=== PATIENT | male | born 1955 | race Two or more races ===

== ENCOUNTER 2022-10-16 07:42 | Inpatient (IN) | payer OTHER ==
[2022-10-16] MEDS ORDERED: fentaNYL 100 MCG/2 ML SDV ONE (08:33)
[2022-10-16] MEDS ORDERED: Ketorolac 30 MG/ML SDV ONE ×2 (08:33→20:36)
[2022-10-16] MEDS ORDERED: Ketorolac 30 MG/ML SDV IVPUSH ONE (08:40)
[2022-10-16] MEDS ORDERED: fentaNYL 100 MCG/2 ML SDV IVPUSH ONE (08:40)
[2022-10-16] MEDS ORDERED: HYDROmorphone 0.5 MG/0.5 ML Syringe IVPUSH PRN ×2 (08:53→19:29)
[2022-10-16] MEDS ORDERED: Ondansetron 8 MG in Sodium Chloride 0.9% 50 ML IV PRN (08:53)
[2022-10-16 08:55] LABS: BASOPHILS PERCENT AUTO 0.3 % (0.0-1.0); EOSINOPHILS PERCENT AUTO 0.2 % (0.0-6.0); HEMOGLOBIN 15.3 gm/dl (14.0-18.0); IMMATURE GRAN ABSOLUTE AUTO 0.08 K/mm3 (0.00-0.05); IMMATURE GRAN PERCENT AUTO 0.7 % (0.0-0.4); LYMPHOCYTES ABSOLUTE AUTO 0.9 K/mm3 (1.0-4.8); LYMPHOCYTES PERCENT AUTO 7.7 % (24.0-44.0); MEAN CORPUSCULAR HEMOGLOBIN 31.6 pg (28.0-32.0); MEAN PLATELET VOLUME 9.4 fl (9.4-12.4); MONOCYTES ABSOLUTE AUTO 0.5 K/mm3 (0.0-0.8); MONOCYTES PERCENT AUTO 4.5 % (0.0-8.0); NEUTROPHILS ABSOLUTE AUTO 9.8 K/mm3 (1.8-7.7); NEUTROPHILS PERCENT AUTO 86.6 % (41.0-71.0); PLATELET COUNT,PLT 240 K/mm3 (150-400); RED BLOOD CELL COUNT 4.84 M/mm3 (4.52-5.90); WHITE BLOOD CELL COUNT,WBC 11.28 K/mm3 (3.9-11.3)
[2022-10-16] MEDS ORDERED: Sodium Chloride 0.9% 1,000 ML IV SCH (09:00)
[2022-10-16 09:02] LABS: INR 1.07; PROTHROMBIN TIME 11.4 SECONDS (9.7-12.0)
[2022-10-16 09:03] LABS: PTT,PARTIAL THROMBOPLSTIN TIME 29.3 SECONDS (21.7-31.4)
[2022-10-16 09:05] LABS: A/G RATIO 0.7 (1-2); ALBUMIN 3.6 g/dl (3.4-5.0); ANION GAP 13.9 (5-15); BILIRUBIN TOTAL 1.1 mg/dL (0.2-1.0); CALCIUM 9.8 mg/dL (8.5-10.1); EST CRCL DRUG DOSING (CG) 69.77 mL/min; POTASSIUM,K 4.9 mEq/L (3.5-5.1); PROTEIN TOTAL,TP 8.9 g/dl (6.4-8.2)
[2022-10-16 09:14] LABS: APPEARANCE,URINE CLEAR (Clear); BILIRUBIN,URINE NEGATIVE (Negative); COLOR,URINE YELLOW (Yellow); GLUCOSE,URINE TRACE (Negative); KETONES,URINE 1+ (Negative); LEUKOCYTE ESTERASE,URINE NEGATIVE (Negative); NITRITE,URINE NEGATIVE (Negative); OCCULT BLOOD,URINE TRACE-INTACT (Negative); PROTEIN,URINE NEGATIVE (Negative); UROBILINOGEN,URINE 0.2 (0.2-1.0)
[2022-10-16 09:35] LABS: BACTERIA,URINE FEW /hpf (FEW); MUCUS,URINE FEW /hpf (FEW); RBC,URINE 0-5 /hpf (0-5); SQUAMOUS EPITHELIAL CELLS,UR 0-5 /hpf (0-5); WBC,URINE 0-5 /hpf (0-5)
[2022-10-16] MEDS: ceFAZolin 2 GM in Sodium Chloride 0.9% 50 ML IV SCH ×2 (09:45→18:10)
[2022-10-16] MEDS ORDERED: Bupivacaine 0.5%/EPINEPHrine 1:200,000 50 ML MDV ONE (17:59)
[2022-10-16] MEDS ORDERED: Bupivacaine 0.25%/EPINEPHrine 1:200,000 30 ML SDV ONE (17:59)
[2022-10-16] MEDS ORDERED: Succinylcholine 200 MG/10 ML MDV ONE (18:35)
[2022-10-16] MEDS ORDERED: Propofol 200 MG/20 ML SDV ONE (18:35)
[2022-10-16] MEDS ORDERED: fentaNYL 250 MCG/5 ML SDV ONE (18:36)
[2022-10-16] MEDS ORDERED: Midazolam 1 MG/ML 2 ML SDV ONE (18:36)
[2022-10-16] MEDS ORDERED: Lidocaine 1% 6 ML ONE (18:37)
[2022-10-16] MEDS ORDERED: Rocuronium 50 MG/5 ML Vial ONE (18:40)
[2022-10-16] MEDS ORDERED: fentaNYL 100 MCG/2 ML SDV IVPUSH PRN (19:29)
[2022-10-16] MEDS ORDERED: Ondansetron 4 MG/2 ML SDV ONE (19:37)
[2022-10-16] MEDS ORDERED: Dexamethasone 4 MG/ML 5 ML MDV ONE (19:45)
[2022-10-16] MEDS ORDERED: Lactated Ringers 1,000 ML ONE (19:51)
[2022-10-16] MEDS ORDERED: Sugammadex Sodium 200 MG/2 ML VIAL ONE (20:35)
[2022-10-16] MEDS ORDERED: ePHEDrine 50 MG/ML SDV ONE (20:54)
[2022-10-16] MEDS: Lactated Ringers 1,000 ML IV SCH (23:15)
[2022-10-17] MEDS: ceFAZolin 2 GM in Sodium Chloride 0.9% 50 ML IV SCH ×3 (01:37→18:42)
[2022-10-17] MEDS: Ketorolac 30 MG/ML SDV IVPUSH PRN ×3 (02:55→21:10)
[2022-10-17] MEDS: Spironolactone 100 MG Tab PO SCH ×2 (06:42→11:19)
[2022-10-17] MEDS: Furosemide 20 MG Tab PO SCH ×2 (06:42→14:08)
[2022-10-17] MEDS: Lactated Ringers 1,000 ML IV SCH ×2 (10:09→18:41)
[2022-10-17] MEDS: Propranolol 60 MG Cap.ER PO SCH (10:10)
[2022-10-17 10:21] LABS: BASOPHILS PERCENT AUTO 0.1 % (0.0-1.0); HEMATOCRIT 37.8 % (42.0-52.0); IMMATURE GRAN ABSOLUTE AUTO 0.07 K/mm3 (0.00-0.05); IMMATURE GRAN PERCENT AUTO 0.4 % (0.0-0.4); LYMPHOCYTES PERCENT AUTO 5.8 % (24.0-44.0); MEAN CORPUSCULAR HEMOGLOBIN 31.4 pg (28.0-32.0); MEAN CORPUSCULAR HGB CONC 33.6 g/dl (32.0-36.0); MEAN CORPUSCULAR VOLUME 93.6 fl (83.0-99.0); MEAN PLATELET VOLUME 9.4 fl (9.4-12.4); MONOCYTES ABSOLUTE AUTO 1.5 K/mm3 (0.0-0.8); MONOCYTES PERCENT AUTO 8.9 % (0.0-8.0); NEUTROPHILS ABSOLUTE AUTO 14.2 K/mm3 (1.8-7.7); NEUTROPHILS PERCENT AUTO 84.8 % (41.0-71.0); PLATELET COUNT,PLT 169 K/mm3 (150-400); RED BLOOD CELL COUNT 4.04 M/mm3 (4.52-5.90); WHITE BLOOD CELL COUNT,WBC 16.69 K/mm3 (3.9-11.3)
[2022-10-17 10:25] LABS: HEMOGLOBIN 12.7 gm/dl (14.0-18.0)
[2022-10-17 11:51] LABS: ANION GAP 12.1 (5-15); BUN/CREATININE RATIO 29.1 (14-18); CREATININE 1.1 mg/dL (0.7-1.3); EST CRCL DRUG DOSING (CG) 63.43 mL/min; POTASSIUM,K 4.1 mEq/L (3.5-5.1)
[2022-10-18] MEDS: ceFAZolin 2 GM in Sodium Chloride 0.9% 50 ML IV SCH ×3 (02:02→17:06)
[2022-10-18] MEDS: Aluminum Hydroxide/Magnesium Hydroxide/Simethicone Susp 30 ML Cup PO PRN ×2 (03:02→21:42)
[2022-10-18] MEDS: Lactated Ringers 1,000 ML IV SCH ×3 (03:14→20:17)
[2022-10-18 05:38] LABS: BASOPHILS PERCENT AUTO 0.2 % (0.0-1.0); EOSINOPHILS ABSOLUTE AUTO 0.1 K/mm3 (0.0-0.4); EOSINOPHILS PERCENT AUTO 0.8 % (0.0-6.0); HEMATOCRIT 33.6 % (42.0-52.0); HEMOGLOBIN 11.4 gm/dl (14.0-18.0); IMMATURE GRAN ABSOLUTE AUTO 0.06 K/mm3 (0.00-0.05); IMMATURE GRAN PERCENT AUTO 0.5 % (0.0-0.4); LYMPHOCYTES ABSOLUTE AUTO 0.9 K/mm3 (1.0-4.8); LYMPHOCYTES PERCENT AUTO 7.1 % (24.0-44.0); MEAN CORPUSCULAR HEMOGLOBIN 31.8 pg (28.0-32.0); MEAN CORPUSCULAR HGB CONC 33.9 g/dl (32.0-36.0); MEAN CORPUSCULAR VOLUME 93.9 fl (83.0-99.0); MEAN PLATELET VOLUME 9.9 fl (9.4-12.4); MONOCYTES ABSOLUTE AUTO 1.4 K/mm3 (0.0-0.8); MONOCYTES PERCENT AUTO 10.4 % (0.0-8.0); NEUTROPHILS ABSOLUTE AUTO 10.8 K/mm3 (1.8-7.7); PLATELET COUNT,PLT 155 K/mm3 (150-400); RED BLOOD CELL COUNT 3.58 M/mm3 (4.52-5.90); WHITE BLOOD CELL COUNT,WBC 13.32 K/mm3 (3.9-11.3)
[2022-10-18 05:51] LABS: ANION GAP 10.1 (5-15); BUN/CREATININE RATIO 32.7 (14-18); CALCIUM 8.6 mg/dL (8.5-10.1); CREATININE 1.1 mg/dL (0.7-1.3); EST CRCL DRUG DOSING (CG) 63.43 mL/min; POTASSIUM,K 4.1 mEq/L (3.5-5.1)
[2022-10-18] MEDS: Furosemide 20 MG Tab PO SCH ×2 (07:39→14:32)
[2022-10-18] MEDS: Propranolol 60 MG Cap.ER PO SCH (09:33)
[2022-10-18] MEDS: Spironolactone 100 MG Tab PO SCH (09:33)
[2022-10-18] MEDS ORDERED: Albumin 25% 25 GM in Premix Bag 1 BAG IV ONE (10:30)
[2022-10-18] MEDS: Albumin 25% 12.5 GM in Premix Bag 1 BAG IV SCH ×2 (11:07→12:19)
[2022-10-18] MEDS: Rifaximin 550 MG Tab PO SCH (20:16)
[2022-10-18] MEDS ORDERED: Lactulose Soln 10 GM/15 ML 30 ML UD Cup PO SCH (21:00)
[2022-10-18] MEDS: Ketorolac 30 MG/ML SDV IVPUSH PRN (21:26)
[2022-10-19] MEDS: Lactated Ringers 1,000 ML IV SCH (04:13)
[2022-10-19 05:27] LABS: ANION GAP 8.6 (5-15); CALCIUM 8.3 mg/dL (8.5-10.1); EST CRCL DRUG DOSING (CG) 69.77 mL/min; POTASSIUM,K 3.6 mEq/L (3.5-5.1)
[2022-10-19 05:36] LABS: BASOPHILS PERCENT AUTO 0.4 % (0.0-1.0); EOSINOPHILS ABSOLUTE AUTO 0.4 K/mm3 (0.0-0.4); EOSINOPHILS PERCENT AUTO 4.5 % (0.0-6.0); HEMATOCRIT 31.7 % (42.0-52.0); HEMOGLOBIN 10.5 gm/dl (14.0-18.0); IMMATURE GRAN ABSOLUTE AUTO 0.03 K/mm3 (0.00-0.05); IMMATURE GRAN PERCENT AUTO 0.4 % (0.0-0.4); LYMPHOCYTES ABSOLUTE AUTO 1.2 K/mm3 (1.0-4.8); LYMPHOCYTES PERCENT AUTO 15.3 % (24.0-44.0); MEAN CORPUSCULAR HEMOGLOBIN 32.3 pg (28.0-32.0); MEAN CORPUSCULAR HGB CONC 33.1 g/dl (32.0-36.0); MEAN PLATELET VOLUME 9.7 fl (9.4-12.4); MONOCYTES PERCENT AUTO 12.4 % (0.0-8.0); NEUTROPHILS ABSOLUTE AUTO 5.2 K/mm3 (1.8-7.7); PLATELET COUNT,PLT 142 K/mm3 (150-400); RED BLOOD CELL COUNT 3.25 M/mm3 (4.52-5.90); WHITE BLOOD CELL COUNT,WBC 7.77 K/mm3 (3.9-11.3)
[2022-10-19 05:44] LABS: MEAN CORPUSCULAR VOLUME 97.5 fl (83.0-99.0)
[2022-10-19] MEDS: Furosemide 20 MG Tab PO SCH (06:47)
[2022-10-19] MEDS ORDERED: Ferrous Sulfate 324 MG Tab.EC PO SCH (09:00)
[2022-10-19] MEDS ORDERED: Fluticasone NASAL Spray 16 GM Bottle NASBOTH SCH (09:00)
[2022-10-19] MEDS ORDERED: Non-Formulary Medication 1 Each (Etodolac [Etodolac] 400 MG Tablet) PO SCH (09:00)
[2022-10-19] MEDS ORDERED: Propranolol 60 MG Cap.ER PO SCH (09:00)
[2022-10-19] MEDS ORDERED: Loratadine 10 MG Tab PO SCH (09:00)
[2022-10-19] MEDS ORDERED: Cholecalciferol (Vitamin D3) 5,000 UNIT Cap PO SCH (09:00)
[2022-10-19] MEDS ORDERED: Pantoprazole 40 MG Tab.CR PO SCH (09:00)
[2022-10-19] MEDS ORDERED: Mupirocin Oint 22 GM Tube TOP SCH (09:00)
[2022-10-19] MEDS: Rifaximin 550 MG Tab PO SCH (09:54)
[2022-10-19] MEDS: ceFAZolin 2 GM in Sodium Chloride 0.9% 50 ML IV SCH ×3 (09:54)
[2022-10-19] MEDS: Propranolol 60 MG Cap.ER PO SCH (09:54)
[2022-10-19] MEDS: Spironolactone 100 MG Tab PO SCH (09:54)
== END 2022-10-19 14:47 | disposition home or self-care (01) | DRG 330 ==
LOC: JD.ED 07:42 → JD.SDS 08:47 → JD.MS 08:53 → OBSVTOIN 11:22
PROVIDERS: ADMIT Specialist; ATTEND Specialist
PROC: 0WQF0ZZ Repair Abdominal Wall, Open Approach (ICD-10-PCS; principal; 2022-10-16)
PROC: 0DB80ZZ Excision of Small Intestine, Open Approach (ICD-10-PCS; 2022-10-16)
DX: K43.6 Other and unspecified ventral hernia with obstruction, without gangrene (principal); K56.600 Partial intestinal obstruction, unspecified as to cause; R18.8 Other ascites; K91.83 Postprocedural hepatorenal syndrome; K42.0 Umbilical hernia with obstruction, without gangrene; I10 Essential (primary) hypertension; K74.60 Unspecified cirrhosis of liver; Z87.81 Personal history of (healed) traumatic fracture
CPT/HCPCS: 36415; 80048; 80053; 81001; 85025; 85610; 85730; 94760; 96374; 96375; 99284-25; A9270-GY; J0330; J0690; J1100; J1170; J1885; J2250; J2405; J2704; J3010; J3490; J7030; J7120; P9047